=== PATIENT | female | born 1975 | race Caucasian/White ===

== ENCOUNTER 2024-04-01 08:52 | Outpatient (CLI) | payer OTHER, SELFPAY ==
--- NOTE | ~2024-04-01 | MR_ITS ---
MRI of the brain Clinical History: Disorder brain Technique: Axial and sagittal T1-weighted images were acquired. These were followed by axial T2-weigh deepali, diffusion weighted, gradient, and FLAIR images. Following intravenous administration of 11 cc Mu ltiHance gadolinium, T1-weighted fat-sat imaging was performed in the axial and coronal planes. Findings: There is no acute infarct, intracranial hemorrhage, or mass lesion. There are several small focal areas of increased signal in the white matter on FLAIR images. Ventricles and subarachnoid spaces are unremarkable. Orbits are unremarkable. Paranasal sinuses and m astoid air cells are clear. Major intracranial flow voids are intact. Sagittal midline structures are intact. IMPRESSION: Probable minimal chronic microvascular ischemic changes in the white matter. Demyelinating disease, v asculitis, sequela of migraine headaches would be potential alternative considerations. No acute infarct or intracranial hemorrhage seen. Reviewed, dictated and finalized at [facility]. IMPRESSION: Probable minimal chronic microvascular ischemic changes in the white matter. De myelinating disease, vasculitis, sequela of migraine headaches would be potenti al alternative considerations. No acute infarct or intracranial hemorrhage seen.
== END 2024-04-01 08:53 | disposition home or self-care (01) ==
DX: R90.89 Other abnormal findings on diagnostic imaging of central nervous system (principal)
CPT/HCPCS: 70553; A9577